=== PATIENT | male | born 2000 | race Caucasian/White ===

== ENCOUNTER 2021-08-28 18:54 | Emergency (ER) | payer OTHER, MEDICAID, SELFPAY ==
--- NOTE | ~2021-08-28 | XR_ITS ---
EXAMINATION: LEFT FOOT AND ANKLE CLINICAL INFORMATION: Injury COMPARISON: None TECHNIQUE: 2 views left foot, 3 views left ankle FINDINGS: There is marked soft tissue swelling laterally. No osseous abnormality is seen. Ankle mortise appears stable. The foot appears unremarkable. XR/XR foot LT 2V IMPRESSION: Lateral soft tissue swelling. No osseous abnormality
--- NOTE | ~2021-08-28 | XR_ITS ---
EXAMINATION: LEFT FOOT AND ANKLE CLINICAL INFORMATION: Injury COMPARISON: None TECHNIQUE: 2 views left foot, 3 views left ankle FINDINGS: There is marked soft tissue swelling laterally. No osseous abnormality is seen. Ankle mortise appears stable. The foot appears unremarkable. XR/XR ankle LT 2V IMPRESSION: Lateral soft tissue swelling. No osseous abnormality
[2021-08-28 20:08] VITALS: BP 118/70; BP 143/79; PULSE 69; PULSE 72; RESP 16; TEMP 36.9; O2SAT 100; O2SAT 99; BMI 31.1
--- NOTE | 2021-08-28 22:22 | ED_ITS ---
HPI - Extremity Injury (Lower) General Chief Complaint: Extremity Injury, Lower Stated Complaint: left ankle pain Time Seen by Provider: 08/28/21 22:09 Source: patient Mode of arrival: ambulatory Limitations: no limitations History of Present Illness HPI Narrative: 21-year-old male presents with left ankle pain swelling and bruising after stepping out of a [employer] truck and twisting his ankle. Patient is unable to bear weight. MD complaint: ankle injury Onset (ago): hour(s) (Within the hour of arrival) Type of Injury: inversion Place: work Severity: moderate Severity scale (1-10): 7 Relieving factors: nothing Exacerbating factors: weight bearing, movement and palpation Context: walking Associated symptoms: swelling and unable to bear weight Other symptoms: none Related Data Previous Rx's Medication Instructions Recorded ibuprofen 600 mg tablet 600 mg PO Q6H PRN #90 tab 08/28/21 Allergies Allergy/AdvReac Type Severity Reaction Status Date / Time No Known Allergies Allergy Unverified 06/15/20 18:07 Review of Systems Review of Systems: Constitutional: No Fever, No Chills ENT/Mouth: No Ear Pain, No Hoarseness, No sore throat Eyes: No Eye Pain, No Swelling, No Redness, No Foreign Body Cardiovascular: No Chest Pain, No SOB Respiratory: No Cough, No Dyspnea Gastrointestinal: No Nausea, No Vomiting, No Diarrhea, No abdominal Pain Genitourinary: No Dysuria, No Hematuria Musculoskeletal: positive left ankle swelling bruising and pain, No Myalgias, No Joint Swelling Skin: No Skin lacerations, No rash Neuro: No Weakness, No Numbness, No Paresthesias, No Loss of Consciousness, No Dizziness, No Headache Psych: No Anxiety/Panic, No Depression Heme/Lymph: no easy bruising, no Lymphadenopathy Endocrine: No Polyuria, No Polydipsia Yes all other systems are reviewed and are negative [facility] Past Medical History Attestation statement: The following information was validated with the patient. Source: old records reviewed Medical History No known health problems Social History Social History Patient Tobacco Use Status: Never used Tobacco Use of substances other than those prescribed or required for medical reasons: No Advance Directives: No Advance Directives Information Provided: Yes Physical Exam Vital Signs: Vital Signs: Last Vital Signs Temp 98.5 F 08/28/21 20:08 Pulse 72 08/28/21 20:08 Resp 16 08/28/21 20:08 BP 118/70 08/28/21 20:08 Pulse Ox 99 08/28/21 20:08 Body Mass Index 31.1 Appearance: Alert. Oriented X3. No acute distress. Eyes: Pupils equal, round and reactive to light. ENT: Pharynx normal. Neck: Normal inspection. Neck supple. CVS: Normal heart rate and rhythm. Pulses normal. Respiratory: No respiratory distress. Breath sounds normal. Abdomen: Soft and nontender. Skin: Skin warm and dry. Normal skin color. Normal skin turgor. Extremities: Decreased range of motion flexion, extension internal and external rotation to the left lower extremity. Bilateral malleolar process tenderness. Brisk capillary refill in the pedal pulses bilaterally. Full range of motion to knee and hip. Neuro: No motor deficit. No sensory deficit. Cranial nerves 2-12 intact. Course Course Course Narrative: 21-year-old male presents with left ankle pain swelling and bruising after stepping out of a truck and twisting his ankle. Unable to bear weight, decreased range of motion. Discussion with Orthopedics, plan of care is for walking boot, crutches and for follow-up in the office. Patient is neurovascularly intact. Patient verbalized understanding of and agrees to plan of care discharge home. Consultations Consultation #1: Steph Time: 22:30 MDM - Extremity Injury (Lower) Differential Diagnosis Differential diagnosis: Likely ankle sprain and strain and ankle fracture Medical Records Attestation: I reviewed the patient's medical records. Imaging Data Left ankle and foot x-ray: Attestation: I personally reviewed and interpreted this imaging study as follows: Radiologist's impression: EXAMINATION: LEFT FOOT AND ANKLE CLINICAL INFORMATION: Injury? COMPARISON: None? TECHNIQUE: 2 views left foot, 3 views left ankle? FINDINGS: There is marked soft tissue swelling laterally. No osseous abnormality is seen. Ankle mortise appears stable. The foot appears unremarkable.? XR/XR foot LT 2V IMPRESSION: Lateral soft tissue swelling. No osseous abnormality? Discharge Plan Discharge Clinical Impression: Ankle sprain and strain Patient Disposition: Home, Self-Care Instructions: Ankle Sprain (ED), Crutch Instructions (ED), R.I.C.E. Treatment (ED), Walking Boot (ED) Additional Instructions: You were evaluated for left ankle injury. You have a grade 2 to grade 3 ankle sprain. Please use crutches, rest ice and elevate the ankle for comfort. Use Tylenol and Motrin as needed for pain management. Please take time every 6 hours and alternate with Motrin every 6 hours. Write down what time he take these medications to prevent accidental overdose. Please follow-up with orthopedics. Call and request an appointment tomorrow morning they are expecting your phone call. Follow up with [facility]. Thank you for choosing this emergency department for evaluation. Please follow-up with primary care physician as needed. Return to the emergency department for any new, concerning, or worsening symptoms. Prescriptions: New ibuprofen 600 mg tablet 600 mg PO Q6H PRN (Reason: pain) Qty: 90 RF: 0 Referrals: Rosa Choi PA-C [Physician Making Department Preparer] - 2 days (Grade 3 ankle sprain) [facility] [Provider Group] - 2 days (Grade 3 ankle sprain) Stand Alone Forms: Work/School Release
[2021-08-28] MEDS: Acetaminophen 325 MG TABLET 975 MG PO (22:31)
[2021-08-28] MEDS: Ibuprofen 400 MG TABLET PO (22:31)
[2021-08-28 22:34] VITALS: RESP 20
--- NOTE | 2021-08-28 22:47 | PC.NURSE ---
Medicated per Nov. Cms and pedal pulses, boot applied and Crunches educations.
== END 2021-08-28 23:02 | disposition home or self-care (01) ==
PROVIDERS: Emergency Provider Emergency Medicine
DX: S93.402A Sprain of unspecified ligament of left ankle, initial encounter (principal); S96.912A Strain of unspecified muscle and tendon at ankle and foot level, left foot, initial encounter; X50.1XXA Overexertion from prolonged static or awkward postures, initial encounter; Y93.89 Activity, other specified; Y92.812 Truck as the place of occurrence of the external cause; Y99.0 Civilian activity done for income or pay
CPT/HCPCS: 73600; 73620; 99284; 99285

== ENCOUNTER → 2021-09-03 09:40 | Outpatient (BNVA) | payer OTHER, MEDICAID, SELFPAY | PROVIDERS: Visit Provider Physician Assistant | DX: S93.402A Sprain of unspecified ligament of left ankle, initial encounter (principal) | CPT/HCPCS: 99202 ==

== ENCOUNTER 2021-10-11 14:00 | Outpatient (RCR) | payer OTHER, MEDICAID, SELFPAY ==
--- NOTE | 2021-09-18 12:03 | MHC.PT.EP ---
[facility] [place] Office [place] Office [place] Office [address] Jeanette Rodriguez [address] [phone] F: [phone] F: [phone] F: [phone] F: [phone] Physical Therapy Plan of Care Date of Evaluation: Date of Surgery: Diagnosis: L ankle sprain Assessment: 21 y/o M referred to PT with sprain of L ankle. 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 Unable to bear weight initially and instant swelling. He went to the ED and imaging was done, (-) for fx. At ortho, he was given a CAM walking boot and is WBAT in boot. 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 Examination shows significantly limited L ankle AROM, decreased L ankle strength, TTP L lateral ankle, and impaired gait pattern. Recommend PT 2x/week for 4 weeks to address impairments, implement HEP, and optimize functional mobility. Frequency and Duration: The patient will be seen 2x/week for 4 weeks Short Term Goals: 3 weeks 1. I with HEP 2. Improve ankle plantarflexion by 10 degrees to facilitate toe to off in gait 3. Improve ankle dorsiflexion by 10 degrees to facilitate stairs Nursing Home Goals: 6 weeks 1. I with HEP and self management of sx 2. Improve L ankle strength to 4/5 to faciliate walking and stairs 3. Pt will ambulate OOB (once medically cleared) with L ankle pain < 3/10 4. Pt will be able to ascend/descend stairs in step-through pattern with pain < 3/10 Treatment Plan: Modalities to reduce pain, spasms and effusion. Manual therapy to restore motion and function. Therapeutic exercise to improve strength and flexibility. Neuromuscular re-education for posture and balance. Therapeutic activities to return to functional activities of daily living. Electronically signed by: Ashley Abdi PT Please sign and return to therapist. Thank you for your referral.
--- NOTE | 2021-11-12 14:16 | MHC.PT.DC ---
[facility] [place] Office [place] Office [place] Office [address] Jeanette Rodriguez [address] [phone] F: [phone] F: [phone] F: [phone] F: [phone] Physical Therapy Discharge Report Diagnosis: L ankle sprain Date of Surgery: Date of Evaluation: 09/18/21 Date of Discharge: 11/12/21 Treatments to Date: 4 Cancellations to Date: 4 No Shows to Date: 1 Discharge Status: Independent with HEP Visit Non-compliance Discharge Summary: He did not f/u with further visits. At time of last attended visit 10/11/21, Pt continues to improve control with exercises. Pt presents with fatigue throughout with exercises, minimal shakiness but reporting fatigue. Continue to progress ROM and strength as tolerated, no increase in pain today. Electronically signed by: Ashley Abdi PT Please sign and return to therapist. Thank you for your referral.
== END 2021-11-12 14:16 | disposition home or self-care (01) ==
LOC: HO.PT 14:00
PROVIDERS: Visit Provider Physician Assistant
DX: S93.402D Sprain of unspecified ligament of left ankle, subsequent encounter (principal)
CPT/HCPCS: 97110; 97112; 97161

== ENCOUNTER → 2021-11-02 12:58 | Outpatient (BNVA) | payer OTHER, MEDICAID, SELFPAY | PROVIDERS: Visit Provider Physician Assistant | DX: S93.402D Sprain of unspecified ligament of left ankle, subsequent encounter (principal) | CPT/HCPCS: 99212 ==